=== PATIENT | male | born 1980 | race African-American/Black ===

== ENCOUNTER 2021-11-09 09:34 | Emergency (ER) | payer OTHER ==
[~2021-11-09] VITALS: Ht 180.3 cm; Wt 100.0 kg
[2021-11-09] MEDS ORDERED: ACETAMINOPHEN 325MG TABLET PO ONE (10:15)
[2021-11-09] MEDS ORDERED: IBUPROFEN 600MG TABLET PO ONE (10:15)
[2021-11-09] MEDS ORDERED: DEXAMETHASONE 10 MG/ML VIAL PO ONE (10:15)
[2021-11-09] MEDS ORDERED: CLIN300C12 MT (10:34)
[2021-11-09] MEDS ORDERED: DEXAMETHASONE 4MG TABLET PO NR (11:00)
[2021-11-09 11:01] VITALS: BP 142/92
== END 2021-11-09 11:16 | disposition home or self-care (01) ==
LOC: ER 09:53
DX: J02.9 Acute pharyngitis, unspecified (principal); F17.210 Nicotine dependence, cigarettes, uncomplicated; Z71.6 Tobacco abuse counseling
CPT/HCPCS: 99284; 99406; J1100; J8540

== ENCOUNTER 2022-06-14 20:55 | Emergency (ER) | payer OTHER ==
[~2022-06-14] VITALS: Ht 180.3 cm; Wt 105.7 kg
[~2022-06-14 20:55] MED LIST: CLIN-194 MT
[2022-06-15] MEDS ORDERED: KETOROLAC 60MG/2ML VIAL IM ONE (03:15)
[2022-06-15 03:31] VITALS: BP 125/78
== END 2022-06-15 03:31 | disposition home or self-care (01) ==
LOC: ER 20:55
DX: R10.32 Left lower quadrant pain (principal)
CPT/HCPCS: 96372; 99283; J1885

== ENCOUNTER 2022-06-16 16:19 | Emergency (ER) | payer OTHER ==
[~2022-06-16] VITALS: Ht 180.3 cm; Wt 103.0 kg
[2022-06-16 16:28] VITALS: BP 166/105
[2022-06-16] MEDS ORDERED: KETOROLAC 30MG/ML VIAL IM STA (21:45)
[2022-06-16 22:12] LABS: HEMATOCRIT. 42.8 % (42.0-52.0); HEMOGLOBIN. 13.8 g/dL (14.0-18.0); MEAN CORPUSCULAR HEMOGLOBIN 23.9 pg (28.0-32.0); MEAN CORPUSCULAR VOLUME 74.4 fL (80.0-94.0); MEAN PLATELET VOLUME 7.4 fl (7.4-10.4); PLATELET 228 x1000/uL (130-400); RED BLOOD CELL COUNT 5.76 mill/uL (4.7-6.1)
[2022-06-16 22:18] LABS: CHLORIDE 106 mEq/L (98-107)
[2022-06-16 22:56] LABS: PLATELET ESTIMATE NORMAL
[2022-06-17] MEDS ORDERED: CEFTRIAXONE 1 G PREMIX 50 ML IV ONE (00:15)
[2022-06-17 00:46] LABS: CLARITY URINE CLEAR (CLEAR); COLOR URINE YELLOW (YELLOW); KETONES URINE TRACE (NEGATIVE); LEUKOCYTE ESTERASE URINE 1+ (NEGATIVE); NITRITE URINE NEGATIVE (NEGATIVE); OCCULT BLOOD URINE 2+ (NEGATIVE); PROTEIN URINE TRACE (NEGATIVE); SPECIFIC GRAVITY URINE 1.017 (1.005-1.030)
[2022-06-17] MEDS ORDERED: TAMS-11 MT (01:42)
[2022-06-17] MEDS ORDERED: CEFP100T8 MT (01:44)
== END 2022-06-17 02:19 | disposition home or self-care (01) ==
LOC: ER 16:19
DX: N20.0 Calculus of kidney (principal); R19.7 Diarrhea, unspecified; R10.32 Left lower quadrant pain
CPT/HCPCS: 36415; 74176; 80053; 81003; 83605; 83690; 85025; 87086; 96365; 96372; 99284; J0696; J1885

== ENCOUNTER 2022-08-19 00:13 | Emergency (ER) | payer OTHER ==
[~2022-08-19] VITALS: Ht 180.3 cm; Wt 100.0 kg
[~2022-08-19 00:13] MED LIST changes: +CEFP100T8 MT; +TAMS-11 MT
[2022-08-19] MEDS ORDERED: HYDROCODONE/ACETAMINOPHEN 5/325MG TABLET PO STA (02:59)
[2022-08-19 03:36] LABS: BASOPHILS % 0.9 % (0.0-2.0); EOSINOPHILS % 0.4 % (0.0-5.0); HEMOGLOBIN. 14.6 g/dL (14.0-18.0); LYMPHOCYTES % 14.7 % (20.0-50.0); MEAN CORPUSCULAR HEMOGLOBIN 24.6 pg (28.0-32.0); MEAN CORPUSCULAR VOLUME 74.3 fL (80.0-94.0); MEAN PLATELET VOLUME 7.6 fl (7.4-10.4); MONOCYTES % 9.7 % (2.0-8.0); NEUTROPHILS % 74.3 % (40.0-76.0); PLATELET 243 x1000/uL (130-400); RED BLOOD CELL COUNT 5.93 mill/uL (4.7-6.1); RED CELL DISTRIBUTION WIDTH 16.4 % (11.6-14.6)
[2022-08-19 03:44] LABS: CHLORIDE 106 mEq/L (98-107)
[2022-08-19 03:49] VITALS: BP 145/90
[2022-08-19 05:13] LABS: CLARITY URINE CLOUDY (CLEAR); COLOR URINE YELLOW (YELLOW); KETONES URINE 2+ (NEGATIVE); LEUKOCYTE ESTERASE URINE 1+ (NEGATIVE); NITRITE URINE NEGATIVE (NEGATIVE); OCCULT BLOOD URINE 3+ (NEGATIVE); PH URINE 6.5 (4.5-8.0); PROTEIN URINE 1+ (NEGATIVE); SPECIFIC GRAVITY URINE 1.024 (1.005-1.030)
[2022-08-19] MEDS ORDERED: KETOROLAC 15MG/ML VIAL IM NR (08:11)
[2022-08-19] MEDS ORDERED: IBUP-2029 MT (09:10)
[2022-08-19] MEDS ORDERED: TAMS-11 MT (09:10)
[2022-08-19] MEDS ORDERED: CEPH500C2 MT (09:10)
[2022-08-19] MEDS ORDERED: HYDR-4001 MT ×2 (09:10→09:11)
[2022-08-19] MEDS ORDERED: CEPHALEXIN 250MG CAPSULE PO NR (09:27)
[2022-08-19] MEDS ORDERED: TAMSULOSIN HCL 0.4MG SR CAPSULE PO NR (09:27)
== END 2022-08-19 09:48 | disposition home or self-care (01) ==
LOC: ER 00:13
DX: N20.1 Calculus of ureter (principal); Z98.890 Other specified postprocedural states
CPT/HCPCS: 36415; 74176; 80053; 81003; 83605; 83690; 85025; 96372; 99284; J1885

== ENCOUNTER 2023-01-16 05:05 | Emergency (ER) | payer MEDICAID, OTHER ==
[~2023-01-16] VITALS: Ht 177.8 cm; Wt 85.0 kg
[~2023-01-16 05:05] MED LIST changes: +CEPH500C2 MT; +HYDR-4001 MT; +IBUP-2029 MT
[2023-01-16] MEDS ORDERED: IBUPROFEN 600MG TABLET PO STA (06:00)
[2023-01-16 06:24] LABS: CLARITY URINE TURBID (CLEAR); COLOR URINE YELLOW (YELLOW); KETONES URINE NEGATIVE (NEGATIVE); LEUKOCYTE ESTERASE URINE 1+ (NEGATIVE); NITRITE URINE NEGATIVE (NEGATIVE); OCCULT BLOOD URINE NEGATIVE (NEGATIVE); PH URINE 8.5 (4.5-8.0); PROTEIN URINE TRACE (NEGATIVE); SPECIFIC GRAVITY URINE 1.018 (1.005-1.030)
[2023-01-16 06:58] VITALS: BP 143/85
[2023-01-16] MEDS ORDERED: CEPH500C2 MT (07:01)
[2023-01-16] MEDS ORDERED: IBUP-2029 MT (07:01)
== END 2023-01-16 07:21 | disposition home or self-care (01) ==
LOC: ER 05:28
DX: N30.00 Acute cystitis without hematuria (principal); Z98.890 Other specified postprocedural states
CPT/HCPCS: 74176; 81003; 99284

== ENCOUNTER 2024-08-16 08:18 | Emergency (ER) | payer MEDICAID, OTHER ==
[~2024-08-16] VITALS: Ht 180.3 cm; Wt 98.0 kg
[2024-08-16 08:22] VITALS: O2SAT 96
[2024-08-16] MEDS ORDERED: IBUP-2029 MT (11:25)
[2024-08-16] MEDS: IBUPROFEN 600MG TABLET PO ONE (12:02)
[2024-08-16 12:04] VITALS: BP 155/91; PULSE 80; RESP 16; TEMP 36.83628; O2SAT 96
== END 2024-08-16 13:29 | disposition home or self-care (01) ==
LOC: ER 08:18
DX: S43.101A Unspecified dislocation of right acromioclavicular joint, initial encounter (principal); Z98.890 Other specified postprocedural states; Z79.899 Other long term (current) drug therapy; X58.XXXA Exposure to other specified factors, initial encounter; Y93.89 Activity, other specified; Y92.89 Other specified places as the place of occurrence of the external cause; Y99.8 Other external cause status
CPT/HCPCS: 73030; 99283

== ENCOUNTER 2025-05-01 23:59 | Emergency (ER) | payer MEDICAID ==
[~2025-05-01] VITALS: Ht 180.3 cm; Wt 100.0 kg
[~2025-05-01 23:59] MED LIST changes: -TAMS-11 MT; +TAMS-54 MT
[2025-05-02 00:10] VITALS: O2SAT 99
[2025-05-02] MEDS ORDERED: AMOX1TAB16 MT (00:52)
[2025-05-02 01:41] VITALS: BP 128/83; PULSE 89; RESP 20; TEMP 37.2; O2SAT 98
== END 2025-05-02 01:42 | disposition home or self-care (01) ==
LOC: ER 23:59
DX: J02.9 Acute pharyngitis, unspecified (principal); F10.90 Alcohol use, unspecified, uncomplicated; Z79.899 Other long term (current) drug therapy; Y90.9 Presence of alcohol in blood, level not specified
CPT/HCPCS: 87430; 99283